=== PATIENT | female | born 1955 | race Hispanic/Latino ===

== ENCOUNTER 2018-02-15 05:52 | Day surgery (SDC) | payer BC ==
[~2018-02-15] VITALS: Ht 172.7 cm; Wt 88.5 kg
[~2018-02-15 05:52] MED LIST: ATOR20TA65 PO; CA C1TAB95 PO; CYAN50008 PO; EMPA10TA PO; INSU200I SQ; LISI10TA7 PO; METF-446 PO; MULT-1250 PO; NPH,100I SQ; SODIUM CHLORIDE 0.9% 1000ML 1,000 ML IV ONE
[2018-02-15 07:15] VITALS: BP 141/68
[2018-02-15] MEDS ORDERED: PROPOFOL 10 MG/ML 20ML VIAL IV ONE (08:12)
[2018-02-15 08:29] VITALS: BP 113/61
[2018-02-15 08:34] VITALS: BP 124/48
[2018-02-15 08:39] VITALS: BP 134/72
== END 2018-02-15 09:15 | disposition home or self-care (01) ==
LOC: ENDO 05:52 → DAH 05:52 → ENDO 09:15
PROVIDERS: ATTEND Internal Medicine
DX: K85.90 Acute pancreatitis without necrosis or infection, unspecified (principal); K31.89 Other diseases of stomach and duodenum; E78.5 Hyperlipidemia, unspecified; E11.9 Type 2 diabetes mellitus without complications; Z79.2 Long term (current) use of antibiotics; Z79.4 Long term (current) use of insulin; Z79.899 Other long term (current) drug therapy; F15.90 Other stimulant use, unspecified, uncomplicated; Z87.891 Personal history of nicotine dependence; Z83.3 Family history of diabetes mellitus; Z82.49 Family history of ischemic heart disease and other diseases of the circulatory system; Z90.49 Acquired absence of other specified parts of digestive tract; Z90.710 Acquired absence of both cervix and uterus; Z80.0 Family history of malignant neoplasm of digestive organs; Z88.8 Allergy status to other drugs, medicaments and biological substances
CPT/HCPCS: 43237; 43239; 82948 ×3; 93005; A4606; J2704; J7030; 43231